=== PATIENT | female | born 1945 | race Caucasian/White ===

== ENCOUNTER 2022-02-05 20:46 | Emergency (ER) | payer MEDICARE, OTHER ==
[2022-02-05] MEDS ORDERED: Sodium Chloride 0.9% 1,000 ML IV ONE (21:31)
[2022-02-05 21:55] LABS: BLOOD UREA NITROGEN,BUN 16 mg/dL (7.0-18.0); CARBON DIOXIDE,CO2 26.1 mmol/L (21.0-32.0); CHLORIDE,CL 99 mmol/L (98-107); GLUCOSE RANDOM 105 mg/dL (74-106); POTASSIUM,K 3.3 mmol/L (3.5-5.1); SODIUM,NA 135 mmol/L (136-145)
[2022-02-05] MEDS ORDERED: Potassium Chloride 10% 20 MEQ/15 ML Soln 30 ML UD Cup PO ONE (22:33)
== END 2022-02-05 23:35 | disposition home or self-care (01) ==
LOC: MW.ED 20:46
DX: I10 Essential (primary) hypertension (principal); R42 Dizziness and giddiness; E87.6 Hypokalemia; F41.9 Anxiety disorder, unspecified; Z88.6 Allergy status to analgesic agent; Z88.5 Allergy status to narcotic agent
CPT/HCPCS: 36415; 71045; 80053; 84484; 85025; 93005; 96360; 99284; A9270; J7030